=== PATIENT | male | born 1960 | race Hispanic/Latino ===

== ENCOUNTER 2022-08-30 10:51 | Outpatient (CLI) | payer OTHER | END 2022-08-30 10:52 | disposition home or self-care (01) | LOC: CSHULT 10:51 | PROVIDERS: ATTEND Urology | DX: N20.0 Calculus of kidney (principal) | CPT/HCPCS: 74018; 76770 ==

== ENCOUNTER 2024-01-18 13:39 | Outpatient (CLI) | payer MEDICARE, OTHER | END 2024-01-18 13:40 | disposition home or self-care (01) | LOC: CSHULT 13:39 | PROVIDERS: ATTEND Urology | DX: N20.0 Calculus of kidney (principal) | CPT/HCPCS: 76770 ==

== ENCOUNTER 2025-01-24 12:59 | Outpatient (CLI) | payer OTHER | END 2025-01-24 13:00 | disposition home or self-care (01) | LOC: CSHRAD 12:59 | PROVIDERS: ATTEND Family Medicine | DX: M54.50 Low back pain, unspecified (principal); M47.816 Spondylosis without myelopathy or radiculopathy, lumbar region | CPT/HCPCS: 72100 ==

== ENCOUNTER 2025-04-09 11:21 | Outpatient (CLI) | payer OTHER | END 2025-04-09 11:22 | disposition home or self-care (01) | LOC: CSHRAD 11:21 | PROVIDERS: ATTEND Orthopaedic Surgery | DX: M54.50 Low back pain, unspecified (principal); M47.816 Spondylosis without myelopathy or radiculopathy, lumbar region | CPT/HCPCS: 72100 ==

== ENCOUNTER 2025-05-05 08:36 | Outpatient (CLI) | payer OTHER | END 2025-05-05 08:37 | disposition home or self-care (01) | LOC: CSHRAD 08:36 | PROVIDERS: ATTEND Urology | DX: N20.0 Calculus of kidney (principal) | CPT/HCPCS: 74018 ==